=== PATIENT | male | born 1970 ===

== ENCOUNTER 2023-06-01 08:32 | Day surgery (SDC) | payer BC ==
[~2023-06-01] VITALS: Ht 170.2 cm; Wt 82.7 kg
[2023-06-01 09:47] VITALS: BP 117/83; PULSE 85; TEMP 97.2
[2023-06-01 11:05] VITALS: BP 112/85; PULSE 78
--- NOTE | 2023-06-01 11:05 | NUR ---
The patient arrived back to [facility] from the endoscopy suite at this time. The patient appears alert and oriented and ambulated from the cart to the recliner in his room with the stand by assistance of two nurses and appeared to tolerate the activity well. Post procedure vital signs were started at this time. The patient's is at his bedside. The patient agrees to try some water and a muffin at this time. Call light is within reach. Warm blanket provided. Denies any further needs.
[2023-06-01 11:20] VITALS: BP 109/76; PULSE 73; TEMP 97.4
--- NOTE | 2023-06-01 11:20 | NUR ---
Dr. Medrano has been in to speak with the patient and his regarding the findings of procedure. Discharge instructions were reviewed with the patient and his . They both verbalized understanding and have no questions for the nurse at this time. The patient's IV to his right anecubital was removed and a pressure dressing was applied to the site. The nurse instructed the patient to get dressed and notify the staff when he is ready to be escorted out.
--- NOTE | 2023-06-01 11:30 | NUR ---
The patient was escorted out via wheelchair to a private vehicle by ARUNA Felix. The patient's belongings and discharge paperwork were sent with him. The patient's , Guillermina, is present to drive him home.
--- NOTE | 2023-06-01 12:15 | NUR ---
PATIENT AMBULATED TO [facility] 5 AT 0928 WITH STEADY GAIT. ALERT AND ORIENTED X4. PATIENT STATED UNDERSTANDING OF PROCEDURE. CONSENTS SIGNED. ASSESSMENT COMPLETED. 22G IV STARTED IN RIGHT AC BY JANINA VALDOVINOS. B/P 138/103 ON ADMISSION. RE-TOOK B/P AFTER PATIENT PUT ON GOWN. RETAKE WAS 117/83. PATRICIA PRIETO NOTIFIED OF ELEVEATED B/P. WARM BLANKET PROVIDED. NO FURTHER NEEDS NOTED.
== END 2023-06-01 11:30 | disposition home or self-care (01) ==
LOC: SDCO 08:32
DX: Z12.11 Encounter for screening for malignant neoplasm of colon (principal); I10 Essential (primary) hypertension
CPT/HCPCS: J2704